=== PATIENT | male | born 1960 | race Two or more races ===

== ENCOUNTER 2019-08-08 22:44 | Inpatient (IN) | payer MEDICAID ==
[~2019-08-08] VITALS: Ht 172.7 cm; Wt 78.9 kg
[2019-08-09] VITALS (7 sets, daily range): BP systolic 131–155; BP diastolic 64–72
[2019-08-09] MEDS ORDERED: DEXTROSE 50%-WATER 50 ML DISP.SYRIN IV PRN (00:30)
[2019-08-09] MEDS ORDERED: Z GUARD REMEDY 2 OZ OINT TP PRN (00:30)
[2019-08-09] MEDS ORDERED: INSULIN REGULAR, HUMAN 100 UNIT/ML 3 ML VIAL SQ ONE (00:30)
[2019-08-09] MEDS ORDERED: ONDANSETRON HCL/PF 4 MG/2 ML VIAL IVP PRN (00:30)
[2019-08-09] MEDS ORDERED: MAG HYDROX/AL HYDROX/SIMETH 30 ML UDC PO PRN (00:30)
[2019-08-09] MEDS ORDERED: MAGNESIUM HYDROXIDE 30 ML UDC PO PRN (00:30)
[2019-08-09 00:55] LABS: BASOPHILS # (AUTO) 0.3 /CMM (0.0-0.2); BASOPHILS % (AUTO) 1.9 % (0.0-2.0); EOSINOPHILS % (AUTO) 0.5 % (0.0-6.0); HEMATOCRIT 38 % (39-51); HEMOGLOBIN 12.4 g/dL (13.5-17.5); LYMPHOCYTES # (AUTO) 1.1 /CMM (0.8-4.8); LYMPHOCYTES % (AUTO) 6.3 % (20.0-44.0); MEAN CORPUSCULAR HGB CONC 33 g/dl (31.0-36.0); MEAN CORPUSCULAR VOLUME 88 fL (80-96); MONOCYTES # (AUTO) 1.3 /CMM (0.1-1.30); MONOCYTES % (AUTO) 7.5 % (2.0-12.0); NEUTROPHILS # (AUTO) 14.5 /CMM (1.8-8.9); NEUTROPHILS % (AUTO) 83.8 % (43.0-81.0); PLATELET COUNT (AUTO) 359 /CMM (150-450); RED BLOOD CELL COUNT(AUTO) 4.28 MIL/uL (4.5-6.0); WHITE BLOOD COUNT (AUTO) 17.3 K/uL (4.3-11.0)
[2019-08-09 01:01] LABS: CALCIUM, SERUM 8.1 mg/dL (8.5-10.1); CREATININE 0.8 mg/dL (0.6-1.3); POTASSIUM 4.5 mmol/L (3.5-5.1)
[2019-08-09] MEDS ORDERED: VANCOMYCIN 1 GM in IV NS 0.9% 250 ML IV SCH (02:30)
[2019-08-09] MEDS ORDERED: VANCOMYCIN 1 GM in IV D5W 250ml IV SCH (02:30)
[2019-08-09] MEDS: IV NS 0.9% 1,000 ML IV PRN ×3 (03:38→23:55)
[2019-08-09] MEDS ORDERED: PIPERACILLIN /TAZOBACTAM 3.375 G VIAL IV ONE (05:40)
[2019-08-09] MEDS: PIPERACILLIN /TAZOBACTAM 3.375 G in IV D5W 50 ML IV SCH ×3 (05:43→19:30)
[2019-08-09 06:17] LABS: BASOPHILS % (AUTO) 0.3 % (0.0-2.0); EOSINOPHILS % (AUTO) 0.1 % (0.0-6.0); HEMATOCRIT 38 % (39-51); HEMOGLOBIN 12.4 g/dL (13.5-17.5); LYMPHOCYTES # (AUTO) 1.7 /CMM (0.8-4.8); LYMPHOCYTES % (AUTO) 9.8 % (20.0-44.0); MEAN CORPUSCULAR HGB CONC 33 g/dl (31.0-36.0); MEAN CORPUSCULAR VOLUME 88 fL (80-96); MONOCYTES # (AUTO) 1.4 /CMM (0.1-1.30); MONOCYTES % (AUTO) 8.3 % (2.0-12.0); NEUTROPHILS % (AUTO) 81.5 % (43.0-81.0); PLATELET COUNT (AUTO) 387 /CMM (150-450); RED BLOOD CELL COUNT(AUTO) 4.28 MIL/uL (4.5-6.0); WHITE BLOOD COUNT (AUTO) 17.2 K/uL (4.3-11.0)
[2019-08-09 06:55] LABS: CALCIUM, SERUM 8.3 mg/dL (8.5-10.1); CREATININE 0.7 mg/dL (0.6-1.3); MAGNESIUM 1.9 mg/dL (1.8-2.4); PHOSPHORUS 3.1 mg/dL (2.5-4.9); POTASSIUM 4.2 mmol/L (3.5-5.1)
[2019-08-09] MEDS ORDERED: FEE PK DOSING 1 MIN EA MC ONE (07:46)
[2019-08-09] MEDS: ASPIRIN 81 MG TAB.CHEW PO SCH (08:07)
[2019-08-09] MEDS: BLOOD SUGAR DIAGNOSTIC 1 EACH STRIP IN SCH ×4 (08:08→21:26)
[2019-08-09] MEDS: HYDROCODONE/APAP 5/325MG 1 EACH TABLET PO PRN ×3 (08:14→21:29)
[2019-08-09] MEDS ORDERED: LISINOPRIL (5MG) 5 MG TABLET PO SCH (09:00)
[2019-08-09] MEDS ORDERED: METFORMIN 500 MG TABLET PO SCH (09:00)
[2019-08-09] MEDS: VANCOMYCIN 1 GM in IV D5W 250 ML IV SCH ×2 (09:13→18:11)
[2019-08-09] MEDS: CLOTRIMAZOLE 1% 15 GM TUBE TP SCH ×2 (09:14→18:07)
[2019-08-09] MEDS: INSULIN REGULAR, HUMAN 100 UNIT/ML 3 ML VIAL SQ PRN ×3 (09:16→18:03)
[2019-08-09] MEDS ORDERED: LIDOCAINE 1% INJ 50 ML MDV IJ ONE (15:00)
[2019-08-09] MEDS ORDERED: GADOTERIDOL 279.3 MG/ML VIAL IV ONE ×2 (16:38)
[2019-08-09] MEDS ORDERED: LISINOPRIL (10MG) 10 MG TABLET PO ONE (18:00)
[2019-08-09] MEDS: *INSULIN REGULAR(HUMULIN R)HUM 100 UNIT/ML VIAL SQ PRN (21:26)
[2019-08-09] MEDS: ATORVASTATIN 40 MG TABLET PO SCH (21:29)
[2019-08-09] MEDS: ZOLPIDEM TARTRATE 5 MG TABLET PO PRN (21:30)
[2019-08-09] MEDS ORDERED: INSULIN GLARGINE, 100 UNIT/ML CARTRIDGE SQ SCH (22:00)
[2019-08-10] MEDS: PIPERACILLIN /TAZOBACTAM 3.375 G in IV D5W 50 ML IV SCH ×5 (00:21→23:23)
[2019-08-10] MEDS: VANCOMYCIN 1 GM in IV D5W 250 ML IV SCH ×3 (01:44→18:38)
[2019-08-10 04:00] VITALS: BP 142/62
[2019-08-10] MEDS: HYDROCODONE/APAP 5/325MG 1 EACH TABLET PO PRN (05:45)
[2019-08-10 07:32] LABS: CALCIUM, SERUM 8.4 mg/dL (8.5-10.1); CREATININE 0.7 mg/dL (0.6-1.3); POTASSIUM 3.5 mmol/L (3.5-5.1)
[2019-08-10] MEDS: BLOOD SUGAR DIAGNOSTIC 1 EACH STRIP IN SCH ×4 (08:39→22:19)
[2019-08-10] MEDS: ACETAMINOPHEN 325 MG TABLET PO PRN ×2 (08:39→21:53)
[2019-08-10] MEDS: INSULIN REGULAR, HUMAN 100 UNIT/ML 3 ML VIAL SQ PRN ×3 (08:40→18:05)
[2019-08-10] MEDS: HYDROGEL DRESSING 90 GM TUBE TP SCH (09:24)
[2019-08-10] MEDS: CLOTRIMAZOLE 1% 15 GM TUBE TP SCH ×2 (09:24→17:54)
[2019-08-10] MEDS: ASPIRIN 81 MG TAB.CHEW PO SCH (09:25)
[2019-08-10] MEDS: LISINOPRIL (20MG) 20 MG TABLET PO SCH ×2 (09:26→17:56)
[2019-08-10 10:08] LABS: BASOPHILS % (AUTO) 0.2 % (0.0-2.0); EOSINOPHILS % (AUTO) 0.3 % (0.0-6.0); HEMATOCRIT 39 % (39-51); HEMOGLOBIN 12.6 g/dL (13.5-17.5); LYMPHOCYTES % (AUTO) 11.2 % (20.0-44.0); MEAN CORPUSCULAR HGB CONC 33 g/dl (31.0-36.0); MEAN CORPUSCULAR VOLUME 88 fL (80-96); MONOCYTES # (AUTO) 1.3 /CMM (0.1-1.30); MONOCYTES % (AUTO) 7.3 % (2.0-12.0); NEUTROPHILS # (AUTO) 14.7 /CMM (1.8-8.9); PLATELET COUNT (AUTO) 370 /CMM (150-450); RED BLOOD CELL COUNT(AUTO) 4.36 MIL/uL (4.5-6.0); WHITE BLOOD COUNT (AUTO) 18.1 K/uL (4.3-11.0)
[2019-08-10 10:50] LABS: BAND % (MANUAL) 1 % (0.0-5.0); LYMPHOCYTES % (MANUAL) 12 % (16-48); MONOCYTES % (MANUAL) 3 % (0-11.0); NEUTROPHILS % (MANUAL) 84 (42-76)
[2019-08-10 12:24] VITALS: BP 106/49
[2019-08-10] MEDS ORDERED: BACITRACIN 50000 UNITS/VIAL ONE (15:40)
[2019-08-10] MEDS ORDERED: BUPIVACAINE 0.5 % PF 150 MG/30 ML VIAL ONE (15:58)
[2019-08-10] MEDS ORDERED: INSULIN REGULAR, HUMAN 100 UNIT/ML 10 ML VIAL ONE (16:12)
[2019-08-10] MEDS: LACTOBACILLUS RHAMNOSUS GG 1 EACH CAP.SPRINK PO SCH (17:56)
[2019-08-10] MEDS ORDERED: IV NS 0.9% 250 ML IV ONE (18:36)
[2019-08-10] MEDS ORDERED: CT SWABBABLE VALVE TRANS SET 1 EA INFUS.SET MC ONE (18:36)
[2019-08-10] MEDS ORDERED: IOHEXOL-350 100 ML VIAL IV ONE (18:36)
[2019-08-10 20:00] VITALS: BP 210/84
[2019-08-10 20:09] VITALS: BP 210/84
[2019-08-10 20:30] VITALS: BP 210/84
[2019-08-10] MEDS: ATORVASTATIN 40 MG TABLET PO SCH (21:53)
[2019-08-10] MEDS ORDERED: INSULIN GLARGINE, 100 UNIT/ML CARTRIDGE SQ SCH (22:00)
[2019-08-10] MEDS: *INSULIN REGULAR(HUMULIN R)HUM 100 UNIT/ML VIAL SQ PRN (22:24)
[2019-08-10] MEDS ORDERED: hydrALAZINE HCL 25 MG TABLET PO ONE (22:30)
[2019-08-11] VITALS (8 sets, daily range): BP systolic 126–192; BP diastolic 54–97
[2019-08-11] MEDS: VANCOMYCIN 1 GM in IV D5W 250 ML IV SCH ×3 (01:01→17:08)
[2019-08-11] MEDS: HYDROCODONE/APAP 5/325MG 1 EACH TABLET PO PRN ×4 (01:06→20:37)
[2019-08-11] MEDS: PIPERACILLIN /TAZOBACTAM 3.375 G in IV D5W 50 ML IV SCH ×4 (06:26→23:55)
[2019-08-11] MEDS: BLOOD SUGAR DIAGNOSTIC 1 EACH STRIP IN SCH ×4 (07:49→21:27)
[2019-08-11 07:52] LABS: CALCIUM, SERUM 8.7 mg/dL (8.5-10.1); CREATININE 0.7 mg/dL (0.6-1.3); POTASSIUM 3.2 mmol/L (3.5-5.1)
[2019-08-11] MEDS: ASPIRIN 81 MG TAB.CHEW PO SCH (07:57)
[2019-08-11] MEDS: LACTOBACILLUS RHAMNOSUS GG 1 EACH CAP.SPRINK PO SCH ×2 (07:57→17:07)
[2019-08-11] MEDS: LISINOPRIL (20MG) 20 MG TABLET PO SCH ×2 (07:58→17:07)
[2019-08-11] MEDS: INSULIN REGULAR, HUMAN 100 UNIT/ML 3 ML VIAL SQ PRN ×3 (07:59→18:06)
[2019-08-11] MEDS: CLOTRIMAZOLE 1% 15 GM TUBE TP SCH ×2 (08:00→17:08)
[2019-08-11] MEDS: HYDROGEL DRESSING 90 GM TUBE TP SCH (08:00)
[2019-08-11 09:51] LABS: BASOPHILS # (AUTO) 0.1 /CMM (0.0-0.2); BASOPHILS % (AUTO) 0.6 % (0.0-2.0); EOSINOPHILS % (AUTO) 0.2 % (0.0-6.0); HEMATOCRIT 38 % (39-51); HEMOGLOBIN 12.6 g/dL (13.5-17.5); LYMPHOCYTES # (AUTO) 1.6 /CMM (0.8-4.8); LYMPHOCYTES % (AUTO) 8.7 % (20.0-44.0); MEAN CORPUSCULAR HGB CONC 33 g/dl (31.0-36.0); MEAN CORPUSCULAR VOLUME 88 fL (80-96); MONOCYTES # (AUTO) 1.3 /CMM (0.1-1.30); MONOCYTES % (AUTO) 6.9 % (2.0-12.0); NEUTROPHILS # (AUTO) 15.1 /CMM (1.8-8.9); NEUTROPHILS % (AUTO) 83.6 % (43.0-81.0); PLATELET COUNT (AUTO) 411 /CMM (150-450); RED BLOOD CELL COUNT(AUTO) 4.33 MIL/uL (4.5-6.0); WHITE BLOOD COUNT (AUTO) 18.1 K/uL (4.3-11.0)
[2019-08-11] MEDS: POTASSIUM CHLORIDE 20 MEQ TAB.PRT.SR PO SCH ×2 (09:57→11:20)
[2019-08-11] MEDS: PROSOURCE / PROSTAT (PYXIS) 30 ML UDC PO SCH ×2 (12:26→17:08)
[2019-08-11] MEDS: hydrALAZINE HCL 25 MG TABLET PO PRN (17:07)
[2019-08-11] MEDS: ACETAMINOPHEN 325 MG TABLET PO PRN (18:03)
[2019-08-11] MEDS: ATORVASTATIN 40 MG TABLET PO SCH (21:20)
[2019-08-11] MEDS: *INSULIN REGULAR(HUMULIN R)HUM 100 UNIT/ML VIAL SQ PRN (21:43)
[2019-08-11] MEDS ORDERED: INSULIN GLARGINE, 100 UNIT/ML CARTRIDGE SQ SCH (22:00)
[2019-08-11] MEDS: IV NS 0.9% 1,000 ML IV PRN (22:11)
[2019-08-12] MEDS: VANCOMYCIN 1 GM in IV D5W 250 ML IV SCH ×2 (01:58→08:34)
[2019-08-12] MEDS: hydrALAZINE HCL 25 MG TABLET PO PRN ×3 (04:17→22:33)
[2019-08-12 04:35] VITALS: BP 170/74
[2019-08-12] MEDS: PIPERACILLIN /TAZOBACTAM 3.375 G in IV D5W 50 ML IV SCH ×2 (05:02→11:31)
[2019-08-12] MEDS: HYDROCODONE/APAP 5/325MG 1 EACH TABLET PO PRN ×2 (05:06→13:27)
[2019-08-12 07:26] LABS: CALCIUM, SERUM 8.4 mg/dL (8.5-10.1); CREATININE 0.7 mg/dL (0.6-1.3); POTASSIUM 3.9 mmol/L (3.5-5.1)
[2019-08-12] MEDS: BLOOD SUGAR DIAGNOSTIC 1 EACH STRIP IN SCH ×5 (07:45→21:49)
[2019-08-12] MEDS: INSULIN REGULAR, HUMAN 100 UNIT/ML 3 ML VIAL SQ PRN ×3 (07:50→16:49)
[2019-08-12 08:00] VITALS: BP 149/69
[2019-08-12] MEDS: LACTOBACILLUS RHAMNOSUS GG 1 EACH CAP.SPRINK PO SCH ×2 (08:31→16:44)
[2019-08-12] MEDS: LISINOPRIL (20MG) 20 MG TABLET PO SCH ×2 (08:31→16:44)
[2019-08-12] MEDS: ASPIRIN 81 MG TAB.CHEW PO SCH (08:31)
[2019-08-12] MEDS: HYDROGEL DRESSING 90 GM TUBE TP SCH (08:35)
[2019-08-12] MEDS: ENOXAPARIN SODIUM 40 MG/0.4 ML DISP.SYRIN SQ SCH (08:35)
[2019-08-12] MEDS: PROSOURCE / PROSTAT (PYXIS) 30 ML UDC PO SCH ×2 (08:35→16:45)
[2019-08-12] MEDS: CLOTRIMAZOLE 1% 15 GM TUBE TP SCH ×2 (08:36→16:50)
[2019-08-12] MEDS: IV NS 0.9% 1,000 ML IV PRN (11:32)
[2019-08-12 13:00] VITALS: BP 151/73
[2019-08-12 16:00] VITALS: BP 177/81
[2019-08-12] MEDS: CEFTRIAXONE 2 G in IV D5W 100 ML IV SCH (17:41)
[2019-08-12 20:00] VITALS: BP 170/72
[2019-08-12] MEDS: METRONIDAZOLE 500 MG TABLET PO SCH (21:15)
[2019-08-12] MEDS: ACETAMINOPHEN 325 MG TABLET PO PRN (21:15)
[2019-08-12] MEDS: ATORVASTATIN 40 MG TABLET PO SCH (21:16)
[2019-08-12] MEDS: *INSULIN REGULAR(HUMULIN R)HUM 100 UNIT/ML VIAL SQ PRN (21:50)
[2019-08-12] MEDS ORDERED: INSULIN GLARGINE, 100 UNIT/ML CARTRIDGE SQ SCH (22:00)
[2019-08-12 22:26] VITALS: BP 153/64
[2019-08-13] MEDS: HYDROCODONE/APAP 5/325MG 1 EACH TABLET PO PRN ×4 (00:50→21:22)
[2019-08-13] MEDS: IV NS 0.9% 1,000 ML IV PRN ×2 (01:38→14:23)
[2019-08-13 04:00] VITALS: BP 120/62
[2019-08-13] MEDS: METRONIDAZOLE 500 MG TABLET PO SCH ×3 (04:40→21:22)
[2019-08-13 06:00] VITALS: BP 120/62
[2019-08-13 06:26] LABS: BASOPHILS % (AUTO) 0.3 % (0.0-2.0); EOSINOPHILS % (AUTO) 0.7 % (0.0-6.0); HEMATOCRIT 33 % (39-51); HEMOGLOBIN 10.9 g/dL (13.5-17.5); LYMPHOCYTES # (AUTO) 1.5 /CMM (0.8-4.8); LYMPHOCYTES % (AUTO) 10.8 % (20.0-44.0); MEAN CORPUSCULAR HGB CONC 33 g/dl (31.0-36.0); MEAN CORPUSCULAR VOLUME 88 fL (80-96); MONOCYTES # (AUTO) 1.2 /CMM (0.1-1.30); MONOCYTES % (AUTO) 8.7 % (2.0-12.0); NEUTROPHILS # (AUTO) 10.7 /CMM (1.8-8.9); NEUTROPHILS % (AUTO) 79.5 % (43.0-81.0); PLATELET COUNT (AUTO) 448 /CMM (150-450); RED BLOOD CELL COUNT(AUTO) 3.75 MIL/uL (4.5-6.0); WHITE BLOOD COUNT (AUTO) 13.5 K/uL (4.3-11.0)
[2019-08-13 06:49] LABS: CALCIUM, SERUM 8.1 mg/dL (8.5-10.1); CREATININE 0.8 mg/dL (0.6-1.3); MAGNESIUM 1.6 mg/dL (1.8-2.4); PHOSPHORUS 2.9 mg/dL (2.5-4.9); POTASSIUM 3.7 mmol/L (3.5-5.1)
[2019-08-13] MEDS: INSULIN REGULAR, HUMAN 100 UNIT/ML 3 ML VIAL SQ PRN ×3 (07:37→18:02)
[2019-08-13 08:00] VITALS: BP 129/70
[2019-08-13] MEDS: LACTOBACILLUS RHAMNOSUS GG 1 EACH CAP.SPRINK PO SCH ×2 (08:22→17:52)
[2019-08-13] MEDS: ASPIRIN 81 MG TAB.CHEW PO SCH (08:23)
[2019-08-13] MEDS: LISINOPRIL (20MG) 20 MG TABLET PO SCH ×2 (08:23→17:52)
[2019-08-13] MEDS: PROSOURCE / PROSTAT (PYXIS) 30 ML UDC PO SCH ×2 (08:24→17:53)
[2019-08-13] MEDS: CLOTRIMAZOLE 1% 15 GM TUBE TP SCH ×2 (08:24→17:53)
[2019-08-13] MEDS: HYDROGEL DRESSING 90 GM TUBE TP SCH (08:24)
[2019-08-13] MEDS: ENOXAPARIN SODIUM 40 MG/0.4 ML DISP.SYRIN SQ SCH (08:25)
[2019-08-13] MEDS: Magnesium 1GM/D5W 100ML PREMIX 100 ML IV SCH ×2 (10:03→11:04)
[2019-08-13] MEDS: BLOOD SUGAR DIAGNOSTIC 1 EACH STRIP IN SCH ×3 (12:22→21:08)
[2019-08-13 16:00] VITALS: BP 120/57
[2019-08-13] MEDS: FLUCONAZOLE (100 MG) 100 MG TABLET PO SCH (17:52)
[2019-08-13] MEDS: CEFTRIAXONE 2 G in IV D5W 100 ML IV SCH (17:53)
[2019-08-13 20:00] VITALS: BP 191/149
[2019-08-13] MEDS: INSULIN GLARGINE, 100 UNIT/ML CARTRIDGE SQ SCH (21:18)
[2019-08-13] MEDS: *INSULIN REGULAR(HUMULIN R)HUM 100 UNIT/ML VIAL SQ PRN (21:20)
[2019-08-13] MEDS: ATORVASTATIN 40 MG TABLET PO SCH (21:22)
[2019-08-14] MEDS: IV NS 0.9% 1,000 ML IV PRN (00:03)
[2019-08-14] MEDS: HYDROCODONE/APAP 5/325MG 1 EACH TABLET PO PRN ×3 (01:46→23:35)
[2019-08-14 04:00] VITALS: BP 140/60
[2019-08-14] MEDS: METRONIDAZOLE 500 MG TABLET PO SCH ×3 (05:34→21:13)
[2019-08-14 06:50] LABS: CALCIUM, SERUM 8.2 mg/dL (8.5-10.1); CREATININE 0.8 mg/dL (0.6-1.3); MAGNESIUM 1.8 mg/dL (1.8-2.4); POTASSIUM 3.9 mmol/L (3.5-5.1)
[2019-08-14] MEDS: BLOOD SUGAR DIAGNOSTIC 1 EACH STRIP IN SCH ×4 (06:58→21:19)
[2019-08-14] MEDS: INSULIN REGULAR, HUMAN 100 UNIT/ML 3 ML VIAL SQ PRN ×3 (06:59→16:54)
[2019-08-14 08:00] VITALS: BP 151/87
[2019-08-14] MEDS: PROSOURCE / PROSTAT (PYXIS) 30 ML UDC PO SCH ×2 (08:19→16:52)
[2019-08-14] MEDS: LACTOBACILLUS RHAMNOSUS GG 1 EACH CAP.SPRINK PO SCH ×2 (08:20→16:52)
[2019-08-14] MEDS: ASPIRIN 81 MG TAB.CHEW PO SCH (08:20)
[2019-08-14] MEDS: LISINOPRIL (20MG) 20 MG TABLET PO SCH ×2 (08:20→16:53)
[2019-08-14] MEDS: ENOXAPARIN SODIUM 40 MG/0.4 ML DISP.SYRIN SQ SCH (08:21)
[2019-08-14] MEDS: HYDROGEL DRESSING 90 GM TUBE TP SCH (08:21)
[2019-08-14] MEDS: CLOTRIMAZOLE 1% 15 GM TUBE TP SCH ×2 (08:26→16:53)
[2019-08-14 16:00] VITALS: BP 192/79
[2019-08-14] MEDS: hydrALAZINE HCL 25 MG TABLET PO PRN (16:53)
[2019-08-14] MEDS: CEFTRIAXONE 2 G in IV D5W 100 ML IV SCH (17:02)
[2019-08-14] MEDS: FLUCONAZOLE (100 MG) 100 MG TABLET PO SCH (17:02)
[2019-08-14 20:00] VITALS: BP 177/66
[2019-08-14] MEDS: ATORVASTATIN 40 MG TABLET PO SCH (21:13)
[2019-08-14] MEDS: INSULIN GLARGINE, 100 UNIT/ML CARTRIDGE SQ SCH (21:31)
[2019-08-14] MEDS: *INSULIN REGULAR(HUMULIN R)HUM 100 UNIT/ML VIAL SQ PRN (21:35)
[2019-08-15 04:00] VITALS: BP 133/54
[2019-08-15] MEDS: HYDROCODONE/APAP 5/325MG 1 EACH TABLET PO PRN ×3 (04:14→22:01)
[2019-08-15] MEDS: METRONIDAZOLE 500 MG TABLET PO SCH ×3 (04:54→22:01)
[2019-08-15] MEDS: IV NS 0.9% 1,000 ML IV PRN ×2 (04:54→14:28)
[2019-08-15 06:38] LABS: BASOPHILS # (AUTO) 0.1 /CMM (0.0-0.2); BASOPHILS % (AUTO) 0.5 % (0.0-2.0); EOSINOPHILS % (AUTO) 0.9 % (0.0-6.0); HEMATOCRIT 31 % (39-51); HEMOGLOBIN 10.3 g/dL (13.5-17.5); LYMPHOCYTES # (AUTO) 2.4 /CMM (0.8-4.8); LYMPHOCYTES % (AUTO) 15.6 % (20.0-44.0); MEAN CORPUSCULAR HGB CONC 33 g/dl (31.0-36.0); MEAN CORPUSCULAR VOLUME 88 fL (80-96); MONOCYTES # (AUTO) 1.1 /CMM (0.1-1.30); MONOCYTES % (AUTO) 7.2 % (2.0-12.0); NEUTROPHILS # (AUTO) 11.6 /CMM (1.8-8.9); NEUTROPHILS % (AUTO) 75.8 % (43.0-81.0); PLATELET COUNT (AUTO) 646 /CMM (150-450); RED BLOOD CELL COUNT(AUTO) 3.56 MIL/uL (4.5-6.0); WHITE BLOOD COUNT (AUTO) 15.3 K/uL (4.3-11.0)
[2019-08-15 07:26] LABS: CALCIUM, SERUM 8.4 mg/dL (8.5-10.1); CREATININE 0.8 mg/dL (0.6-1.3); POTASSIUM 3.9 mmol/L (3.5-5.1)
[2019-08-15] MEDS: BLOOD SUGAR DIAGNOSTIC 1 EACH STRIP IN SCH ×4 (07:35→22:04)
[2019-08-15] MEDS: INSULIN REGULAR, HUMAN 100 UNIT/ML 3 ML VIAL SQ PRN ×3 (07:43→17:38)
[2019-08-15 08:00] VITALS: BP 133/69
[2019-08-15] MEDS: LACTOBACILLUS RHAMNOSUS GG 1 EACH CAP.SPRINK PO SCH ×2 (09:01→16:28)
[2019-08-15] MEDS: PROSOURCE / PROSTAT (PYXIS) 30 ML UDC PO SCH ×2 (09:01→16:29)
[2019-08-15] MEDS: LISINOPRIL (20MG) 20 MG TABLET PO SCH ×2 (09:01→16:28)
[2019-08-15] MEDS: ASPIRIN 81 MG TAB.CHEW PO SCH (09:01)
[2019-08-15] MEDS: HYDROGEL DRESSING 90 GM TUBE TP SCH (09:02)
[2019-08-15] MEDS: CLOTRIMAZOLE 1% 15 GM TUBE TP SCH ×2 (09:02→16:29)
[2019-08-15] MEDS: ENOXAPARIN SODIUM 40 MG/0.4 ML DISP.SYRIN SQ SCH (10:43)
[2019-08-15 16:00] VITALS: BP 153/59
[2019-08-15] MEDS: FLUCONAZOLE (100 MG) 100 MG TABLET PO SCH (17:44)
[2019-08-15] MEDS: CEFTRIAXONE 2 G in IV D5W 100 ML IV SCH (17:44)
[2019-08-15] MEDS: ZOLPIDEM TARTRATE 5 MG TABLET PO PRN (22:01)
[2019-08-15] MEDS: ATORVASTATIN 40 MG TABLET PO SCH (22:02)
[2019-08-15] MEDS: INSULIN GLARGINE, 100 UNIT/ML CARTRIDGE SQ SCH (22:15)
[2019-08-15] MEDS: *INSULIN REGULAR(HUMULIN R)HUM 100 UNIT/ML VIAL SQ PRN (22:22)
[2019-08-16 00:17] VITALS: BP 144/57
[2019-08-16] MEDS: IV NS 0.9% 1,000 ML IV PRN ×2 (03:08→18:14)
[2019-08-16] MEDS: METRONIDAZOLE 500 MG TABLET PO SCH ×2 (04:36→13:15)
[2019-08-16] MEDS: HYDROCODONE/APAP 5/325MG 1 EACH TABLET PO PRN ×4 (04:37→21:37)
[2019-08-16 06:27] LABS: BASOPHILS # (AUTO) 0.1 /CMM (0.0-0.2); BASOPHILS % (AUTO) 0.6 % (0.0-2.0); EOSINOPHILS % (AUTO) 0.9 % (0.0-6.0); HEMATOCRIT 31 % (39-51); HEMOGLOBIN 10.2 g/dL (13.5-17.5); LYMPHOCYTES % (AUTO) 14.6 % (20.0-44.0); MEAN CORPUSCULAR HGB CONC 33 g/dl (31.0-36.0); MEAN CORPUSCULAR VOLUME 87 fL (80-96); MONOCYTES % (AUTO) 7.2 % (2.0-12.0); NEUTROPHILS # (AUTO) 10.6 /CMM (1.8-8.9); NEUTROPHILS % (AUTO) 76.7 % (43.0-81.0); PLATELET COUNT (AUTO) 687 /CMM (150-450); RED BLOOD CELL COUNT(AUTO) 3.52 MIL/uL (4.5-6.0); WHITE BLOOD COUNT (AUTO) 13.8 K/uL (4.3-11.0)
[2019-08-16 06:51] LABS: CALCIUM, SERUM 8.3 mg/dL (8.5-10.1); CREATININE 0.7 mg/dL (0.6-1.3); POTASSIUM 3.9 mmol/L (3.5-5.1)
[2019-08-16 08:00] VITALS: BP 120/54
[2019-08-16] MEDS: INSULIN REGULAR, HUMAN 100 UNIT/ML 3 ML VIAL SQ PRN ×3 (08:18→17:37)
[2019-08-16] MEDS: BLOOD SUGAR DIAGNOSTIC 1 EACH STRIP IN SCH ×4 (08:18→21:51)
[2019-08-16] MEDS: LACTOBACILLUS RHAMNOSUS GG 1 EACH CAP.SPRINK PO SCH ×2 (08:37→16:11)
[2019-08-16] MEDS: ASPIRIN 81 MG TAB.CHEW PO SCH (08:37)
[2019-08-16] MEDS: LISINOPRIL (20MG) 20 MG TABLET PO SCH ×2 (08:38→16:12)
[2019-08-16] MEDS: HYDROGEL DRESSING 90 GM TUBE TP SCH (08:38)
[2019-08-16] MEDS: CLOTRIMAZOLE 1% 15 GM TUBE TP SCH ×2 (08:39→16:14)
[2019-08-16] MEDS: PROSOURCE / PROSTAT (PYXIS) 30 ML UDC PO SCH ×2 (13:16→16:14)
[2019-08-16] MEDS: ENOXAPARIN SODIUM 40 MG/0.4 ML DISP.SYRIN SQ SCH (13:21)
[2019-08-16 16:00] VITALS: BP 134/53
[2019-08-16] MEDS ORDERED: PIPERACILLIN /TAZOBACTAM 3.375 G in IV D5W 50 ML IV ONE (18:00)
[2019-08-16] MEDS: FLUCONAZOLE (100 MG) 100 MG TABLET PO SCH (18:13)
[2019-08-16 20:00] VITALS: BP 159/75
[2019-08-16] MEDS: ATORVASTATIN 40 MG TABLET PO SCH (21:34)
[2019-08-16] MEDS: hydrALAZINE HCL 25 MG TABLET PO PRN (21:35)
[2019-08-16] MEDS: INSULIN GLARGINE, 100 UNIT/ML CARTRIDGE SQ SCH (21:53)
[2019-08-16] MEDS: *INSULIN REGULAR(HUMULIN R)HUM 100 UNIT/ML VIAL SQ PRN (22:13)
[2019-08-17] VITALS: BP 145/70
[2019-08-17] MEDS: PIPERACILLIN /TAZOBACTAM 3.375 G in IV D5W 100 ML IV SCH ×2 (02:29→09:43)
[2019-08-17] MEDS: HYDROCODONE/APAP 5/325MG 1 EACH TABLET PO PRN ×2 (03:49→09:33)
[2019-08-17 04:00] VITALS: BP 141/64
[2019-08-17 06:32] LABS: BASOPHILS # (AUTO) 0.1 /CMM (0.0-0.2); BASOPHILS % (AUTO) 0.6 % (0.0-2.0); HEMATOCRIT 31 % (39-51); HEMOGLOBIN 10.1 g/dL (13.5-17.5); LYMPHOCYTES # (AUTO) 2.5 /CMM (0.8-4.8); LYMPHOCYTES % (AUTO) 17.6 % (20.0-44.0); MEAN CORPUSCULAR HGB CONC 33 g/dl (31.0-36.0); MEAN CORPUSCULAR VOLUME 88 fL (80-96); MONOCYTES # (AUTO) 1.4 /CMM (0.1-1.30); NEUTROPHILS # (AUTO) 10.2 /CMM (1.8-8.9); NEUTROPHILS % (AUTO) 70.8 % (43.0-81.0); PLATELET COUNT (AUTO) 792 /CMM (150-450); RED BLOOD CELL COUNT(AUTO) 3.48 MIL/uL (4.5-6.0); WHITE BLOOD COUNT (AUTO) 14.4 K/uL (4.3-11.0)
[2019-08-17] MEDS: BLOOD SUGAR DIAGNOSTIC 1 EACH STRIP IN SCH ×2 (06:37→12:11)
[2019-08-17] MEDS: INSULIN REGULAR, HUMAN 100 UNIT/ML 3 ML VIAL SQ PRN ×2 (06:39→12:39)
[2019-08-17 06:46] LABS: CALCIUM, SERUM 8.4 mg/dL (8.5-10.1); CREATININE 0.9 mg/dL (0.6-1.3)
[2019-08-17 08:00] VITALS: BP 158/64
[2019-08-17] MEDS: IV NS 0.9% 1,000 ML IV PRN (09:04)
[2019-08-17] MEDS: HYDROGEL DRESSING 90 GM TUBE TP SCH (09:15)
[2019-08-17] MEDS: CLOTRIMAZOLE 1% 15 GM TUBE TP SCH ×2 (09:15→17:00)
[2019-08-17] MEDS: LACTOBACILLUS RHAMNOSUS GG 1 EACH CAP.SPRINK PO SCH ×2 (09:28→17:00)
[2019-08-17] MEDS: PROSOURCE / PROSTAT (PYXIS) 30 ML UDC PO SCH ×2 (09:28→17:00)
[2019-08-17] MEDS: LISINOPRIL (20MG) 20 MG TABLET PO SCH ×2 (09:29→17:00)
[2019-08-17] MEDS: ASPIRIN 81 MG TAB.CHEW PO SCH (09:29)
[2019-08-17] MEDS: ENOXAPARIN SODIUM 40 MG/0.4 ML DISP.SYRIN SQ SCH (09:31)
[2019-08-17] MEDS ORDERED: hydrALAZINE HCL 25 MG TABLET PO PRN (10:00)
[2019-08-17 16:00] VITALS: BP 174/79
== END 2019-08-17 16:46 | disposition left against medical advice (07) | DRG 710 ==
LOC: MEDSG1 08-09 00:06 → TELE-TD 08-09 00:36 → MEDSG1 08-09 03:14
PROVIDERS: ADMIT Internal Medicine; ATTEND Family Medicine
PROC: 0JBR0ZZ Excision of Left Foot Subcutaneous Tissue and Fascia, Open Approach (ICD-10-PCS; principal; 2019-08-09)
PROC: 0KBW0ZZ Excision of Left Foot Muscle, Open Approach (ICD-10-PCS; 2019-08-10)
DX: A41.9 Sepsis, unspecified organism (principal); G93.41 Metabolic encephalopathy; A48.0 Gas gangrene; E11.40 Type 2 diabetes mellitus with diabetic neuropathy, unspecified; E11.52 Type 2 diabetes mellitus with diabetic peripheral angiopathy with gangrene; I25.10 Atherosclerotic heart disease of native coronary artery without angina pectoris; B37.49 Other urogenital candidiasis; E11.65 Type 2 diabetes mellitus with hyperglycemia; L03.116 Cellulitis of left lower limb; E11.621 Type 2 diabetes mellitus with foot ulcer; Z86.73 Personal history of transient ischemic attack (TIA), and cerebral infarction without residual deficits; I10 Essential (primary) hypertension; E78.5 Hyperlipidemia, unspecified; S90.822A Blister (nonthermal), left foot, initial encounter; X58.XXXA Exposure to other specified factors, initial encounter; Y93.9 Activity, unspecified; Y92.009 Unspecified place in unspecified non-institutional (private) residence as the place of occurrence of the external cause; S90.425A Blister (nonthermal), left lesser toe(s), initial encounter; L97.523 Non-pressure chronic ulcer of other part of left foot with necrosis of muscle; Z89.431 Acquired absence of right foot; Z79.4 Long term (current) use of insulin
CPT/HCPCS: 36415; 71045-TC; 73720-TC; 80048-TC; 80061-TC; 80202-TC; 82962-TC; 83605-TC; 83735-TC; 84100-TC; 85025-TC; 87040-TC; 87070-TC; 87081-TC; 87086-TC; 87186-TC; A6209; A6248; A6253; A6403; A6407; A9579; G0378; J0696; J1650; J1815; J2543; J3370; J3475; J3490; J7030; J7040; J7050; J7060; Q9967